=== PATIENT | male | born 1960 | race Hispanic/Latino ===

== ENCOUNTER 2016-10-22 08:43 | Day surgery (SDC) | payer OTHER ==
[2016-10-22 08:57] VITALS: O2SAT 98
--- NOTE | 2016-10-22 09:23 | RAD ---
HISTORY: +stress COMPARISON: Med are FINDINGS: LUNGS: The lungs are well inflated and clear. PLEURA: No significant pleural effusion identified, no pneumothorax apparent. CARDIOVASCULAR: There is borderline cardiomegaly. OSSEOUS STRUCTURES: No significant abnormalities. VISUALIZED UPPER ABDOMEN: Normal. OTHER FINDINGS: None. IMPRESSION: No active pulmonary disease.
[2016-10-22 09:41] LABS: ADD MANUAL DIFF? NO
[2016-10-22 09:44] LABS: BASO # 0.02 K/mm3 (0.0-2.0); BASO % 0.5 % (0.0-3.0); EOS # 0.1 (0.0-0.7); EOS % 1.2 % (1.5-5.0); GRAN # 2.97 (1.4-6.5); GRAN % 68.5 % (50.0-68.0); HEMATOCRIT 41.2 % (42.0-52.0); LYMPH # 0.9 (1.2-3.4); LYMPH % 21.7 % (22.0-35.0); MEAN CELL VOLUME 86.6 fL (80.0-105.0); MEAN CORPUSCULAR HEMOGLOBIN 29.8 pg (25.0-35.0); MEAN CORPUSCULAR HGB CONC 34.5 g/dl (31.0-37.0); MEAN PLATELET VOLUME 11.1 fl (7.0-11.0); MONO # 0.4 (0.1-0.6); MONO % 8.1 % (1.0-6.0); PLATELET COUNT 185 10^3/uL (120.0-450.0); RED CELL DISTRIBUTION WIDTH 13.3 % (11.5-14.5); WHITE BLOOD COUNT 4.3 10^3/ul (4.5-11.0)
--- NOTE | 2016-10-22 09:57 | ED PDOC ---
Arrival/HPI - General Chief Complaint: Medical Clearance Time Seen by Provider: 10/22/16 08:47 Historian: Patient - History of Present Illness Narrative History of Present Illness (Text): 10/22/16 09:13 A 56 year old male, whose past medical history includes hypercholesterolemia, diabetes, and sleep apnea, who is sent by Dr. Valle for an abnormal stress test. Patient reports for the past couple of week he has been experiencing mild intermittent chest discomfort associated with shortness of breath so he made an appointment to have a stress test this morning. While running on the treadmill Dr. Valle noticed some abnormalities so he sent him down for further evaluation. Currently the patient is asymptomatic and denies any chest pain, shortness of breath or any other complaints at this time. PMD: Dr. Giron Time/Duration: > week (2 weeks) Symptom Onset: Other Symptom Course: Intermittent Quality: Other Activities at Onset: Rest Context: Home Past Medical History - Provider Review Nursing Documentation Reviewed: Yes - Infectious Disease Hx of Infectious Diseases: None - Cardiac Hx Hypertension: Yes - Gastrointestinal Hx Gastrointestinal Disorders: No - Psychiatric Hx Substance Use: No - Anesthesia Hx Anesthesia: No Family/Social History - Physician Review Nursing Documentation Reviewed: Yes Family/Social History: Unknown Family HX Smoking Status: Unknown If Ever Smoked Hx Alcohol Use: No Hx Substance Use: No Allergies/Home Meds Allergies/Adverse Reactions: Allergies amoxicillin trihydrate [From Augmentin] Allergy (Verified 10/22/16 08:54) RASH Penicillins Allergy (Verified 10/22/16 08:54) RASH potassium clavulanate [From Augmentin] Allergy (Verified 10/22/16 08:54) RASH Home Medications: Home Meds Medication Instructions Recorded Confirmed Amlodipine Besylate/Benazepril 1 cap PO DAILY 10/22/16 10/22/16 [Amlodipine Besylate and Benazepril Hydrochlor] Fenofibrate [Fenoglide] 130 mg PO DAILY 10/22/16 10/22/16 Lansoprazole [Prevacid] 30 mg PO DAILY 10/22/16 10/22/16 Review of Systems - Physician Review All systems were reviewed & negative as marked: Yes - Review of Systems Constitutional: absent: Fevers Respiratory: SOB Cardiovascular: Chest Pain Physical Exam Vital Signs Reviewed: Yes Vital Signs Temp Pulse Resp BP Pulse Ox 10/22/16 08:56 97.8 F 73 16 145/87 98 Temperature: Afebrile Blood Pressure: Normal Pulse: Regular Respiratory Rate: Normal Appearance: Positive for: Well-Appearing, Non-Toxic, Comfortable Pain Distress: None Mental Status: Positive for: Alert and Oriented X 3 - Systems Exam Head: Present: Atraumatic, Normocephalic Pupils: Present: PERRL Extroacular Muscles: Present: EOMI Conjunctiva: Present: Normal Mouth: Present: Moist Mucous Membranes Neck: Present: Normal Range of Motion Respiratory/Chest: Present: Clear to Auscultation, Good Air Exchange. No: Respiratory Distress, Accessory Muscle Use Cardiovascular: Present: Regular Rate and Rhythm, Normal S1, S2. No: Murmurs Abdomen: Present: Normal Bowel Sounds. No: Tenderness, Distention, Peritoneal Signs Back: Present: Normal Inspection Upper Extremity: Present: Normal Inspection. No: Cyanosis, Edema Lower Extremity: Present: Normal Inspection. No: Edema Neurological: Present: GCS=15, CN II-XII Intact, Speech Normal Skin: Present: Warm, Dry, Normal Color. No: Rashes Psychiatric: Present: Alert, Oriented x 3, Normal Insight, Normal Concentration Medical Decision Making ED Course and Treatment: Case discussed with Dr. Valle prior to arrival of the patient. He states to give the patient Aspirin and Plavix. Dr. Valle says to admit the patient for same day surgery and that he will taking the patient up today for a cardiac catheterization. EKG: Ordered, reviewed, and independently interpreted the EKG. Rate : 69 BPM Rhythm : NSR Interpretation : Left ventricular hypertrophy, nonspecific conduction delay, no acute ischemia. I have discussed with the patient of Dr. Valle plan to admit patient to the hospital for cardiac catheterization today, who expresses understanding. Patient given the opportunity to ask question, all questions were answered and there is agreement with the plan to be admitted to the hospital. Patient went up for cardiac catheterization. Case discussed with Dr. Giron, who is aware and agrees with the plan to admit the patient under his services. 10/22/16 09:25 Chest X-ray: Creator : Belkis Conway MD FINDINGS: LUNGS: The lungs are well inflated and clear. PLEURA: No significant pleural effusion identified, no pneumothorax apparent. CARDIOVASCULAR: There is borderline cardiomegaly. OSSEOUS STRUCTURES: No significant abnormalities. VISUALIZED UPPER ABDOMEN: Normal. OTHER FINDINGS: None. IMPRESSION: No active pulmonary disease. - Lab Interpretations Lab Results: 10/22/16 09:33 10/22/16 09:33 Lab Results 10/22/16 09:33: WBC 4.3 L, RBC 4.76, Hgb 14.2, Hct 41.2 L, MCV 86.6, MCH 29.8, MCHC 34.5, RDW 13.3, Plt Count 185, MPV 11.1 H, Gran % 68.5 H, Lymph % (Auto) 21.7 L, [place] % (Auto) 8.1 H, Eos % (Auto) 1.2 L, Baso % (Auto) 0.5, Gran # 2.97 , Lymph # 0.9 L, [place] # 0.4, Eos # 0.1, Baso # 0.02, Sodium 141, Potassium 3.9, Chloride 103, Carbon Dioxide 26, Anion Gap 16, BUN 15, Creatinine 0.9, Est GFR ( Amer) > 60, Est GFR (Non-Af Amer) > 60, Random Glucose 109, Calcium 9.2 , Total Bilirubin 0.5, AST 46, ALT 71 H, Alkaline Phosphatase 69, Troponin I 0.03, Total Protein 7.0, Albumin 4.3, Globulin 2.7, Albumin/Globulin Ratio 1.6 I have reviewed the lab results: Yes - RAD Interpretation Radiology Orders: 10/22/16 09:02 CHEST PORTABLE [RAD] Stat - Medication Orders Current Medication Orders: Discontinued Medications Aspirin (Aspirin Chewable) 324 mg PO STAT STA Stop: 10/22/16 09:03 Last Admin: 10/22/16 09:23 Dose: 324 MG Bivalirudin (Angiomax) Confirm Administered Dose 250 mg IV .STK-MED ONE Stop: 10/22/16 10:17 Clopidogrel Bisulfate (Plavix) 600 mg PO STAT STA Stop: 10/22/16 09:03 Last Admin: 10/22/16 09:23 Dose: 600 MG Diphenhydramine HCl (Benadryl) Confirm Administered Dose 50 mg .ROUTE .STK-MED ONE Stop: 10/22/16 10:32 Fentanyl (Fentanyl) Confirm Administered Dose 100 mcg .ROUTE .STK-MED ONE Stop: 10/22/16 10:21 Hydrocortisone Sodium Succinate (Solu-Cortef) Confirm Administered Dose 100 mg .ROUTE .STK-MED ONE Stop: 10/22/16 10:32 Heparin Sodium (Porcine) (Heparin 1000 Units/500 Ml Ns) Confirm Administered Dose 1,500 mls @ ud IV .STK-MED ONE Stop: 10/22/16 10:18 Famotidine (Pepcid 20mg/50ml Premix) Confirm Administered Dose 50 mls @ ud IVPB .STK-MED ONE Stop: 10/22/16 10:32 Iodixanol (Visipaque 320 Mg/Ml 200 Ml) Confirm Administered Dose 200 ml IV .STK- MED ONE Stop: 10/22/16 10:18 Iohexol (Omnipaque 350mg/Ml 50 Ml) Confirm Administered Dose 50 ml .ROUTE .STK- MED ONE Stop: 10/22/16 10:18 Lidocaine HCl (Lidocaine 2% 20ml Vial) Confirm Administered Dose 20 ml .ROUTE .STK-MED ONE Stop: 10/22/16 10:17 Midazolam HCl (Versed Inj) Confirm Administered Dose 2 mg .ROUTE .STK-MED ONE Stop: 10/22/16 10:21 Midazolam HCl (Versed Inj) Confirm Administered Dose 2 mg .ROUTE .STK-MED ONE Stop: 10/22/16 10:51 - Scribe Statement The provider has reviewed the documentation as recorded by the Rios Holden Provider Scribe Attestation: All medical record entries made by the Rios were at my direction and personally dictated by me. I have reviewed the chart and agree that the record accurately reflects my personal performance of the history, physical exam, medical decision making, and the department course for this patient. I have also personally directed, reviewed, and agree with the discharge instructions and disposition. Disposition/Present on Arrival - Present on Arrival Any Indicators Present on Arrival: No History of DVT/PE: No History of Uncontrolled Diabetes: No Urinary Catheter: No History of Decub. Ulcer: No History Surgical Site Infection Following: None - Disposition Have Diagnosis and Disposition been Completed?: Yes Disposition Time: 09:15
[2016-10-22 10:01] LABS: ALB/GLOB RATIO 1.6 (1.1-1.8); ALKALINE PHOSPHATASE 69 U/L (38-133); ALT/SGPT 71 U/L (7-56); AST/SGOT 46 U/L (15-59); BILIRUBIN,TOTAL 0.5 mg/dL (0.2-1.3); BLOOD UREA NITROGEN 15 mg/dL (7-21); CALCIUM 9.2 mg/dL (8.4-10.5); CARBON DIOXIDE 26 mmol/L (21-33); CHLORIDE 103 mmol/L (95-110); GFR AFRICAN-AMERICAN > 60; GLUCOSE,RANDOM 109 mg/dL (70-110); POTASSIUM 3.9 mmol/L (3.6-5.0); SODIUM 141 mmol/L (132-148)
[2016-10-22 10:13] LABS: TROPONIN I 0.03 ng/mL
[2016-10-22] MEDS ORDERED: Lidocaine 2% Inj (20ml) ONE (10:16)
[2016-10-22] MEDS ORDERED: Iohexol 350mgl/ml 50 ML ONE (10:17)
[2016-10-22] MEDS ORDERED: Iodixanol 320 MG/ML 200 ML BOTTLE IV ONE (10:17)
[2016-10-22] MEDS ORDERED: Midazolam 2 MG/2 ML VIAL ONE (10:20)
[2016-10-22] MEDS ORDERED: Famotidine 20mg/50ml 50 ML IVPB ONE (10:31)
[2016-10-22] MEDS ORDERED: DiphenhydrAMINE 50 mg/ml Inj ONE (10:31)
[2016-10-22] MEDS: Midazolam 2 MG/2 ML VIAL ONE ×2 (10:52→10:54)
[2016-10-22 12:57] VITALS: TEMP 98
--- NOTE | 2016-10-22 12:58 | CARDCATH ---
PROCEDURE DATE: 10/22/2016 HISTORY OF PRESENT ILLNESS: The patient is a 56-year-old male who presented to the Emergency Room af ter developing frequent PVCs as well as dyspnea and angina during a stress test. The patient's risk factors include hypertension which is not well controlled, obesity, as well as a strong family histor y for coronary artery disease. 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 Because of this, we b rought him to the laborer cheesemaking to definitively rule out coronary artery disease. PROCEDURE: Left heart catheterization with coronary angiography and left ventriculogram and supra-ao rtic valvular injection. The right femoral artery was cannulated with a 6-Tamazight sheath. There were no complications. The findings on catheterization revealed a left ventricle that revealed low normal LV ejection fracti on. Estimated ejection fraction is approximately 50%. His coronary anatomy revealed a left main artery that was unremarkable. His LAD and diagonal vessels were free of significant disease. The circumflex artery and obtuse marginal branches were free of significant disease. The RCA was found to be a dominant vessel and was within normal limits. Supra-aortic valvular injection revealed no aortic insufficiency. The aorta was dilated from the aor tic root around to the arch and part of the ascending aorta. No dissection flap was noted. Angio-Seal was used to close the femoral artery site. The patient tolerated the procedure well. In summary, the procedure revealed: 1. Low normal left ventricular function with an ejection fraction of 50%. 2. Normal coronary arteries. 3. A dilated ascending and transverse aorta. Given these findings, the patient's treatment needs to be medical therapy. Weight loss would be nece ssary. A low-salt diet and a strict cardiac risk reduction program including aerobic exercise is nec essary. I have discussed this with the patient and family in detail. They understand. As an outpat ient, we will obtain a CT scan of the aorta to follow his dilated ascending aorta. Pj Valle MD cc: [id number] TT: 10/22/2016 12:58:30 en
--- NOTE | 2016-10-22 13:19 | HP ---
I saw the patient in the stress test with Dr. Valle, who requested him to get a catheterization today. Finally, he agreed to go for catheterization. He just got done with the catheterization. Just spo ke to Dr. Valle. After having abnormal stress test, he said the cath was not that bad. No stents. Marylou duffy needs to have his blood pressure better well managed, lower cholesterol and lose weight. So, he wi ll probably be sent to the floor for admission and then discharged later today at 6:00. He understan ds the situation. He is comfortable in bed, a little chest discomfort, but no chest pain or shortnes s of breath at this time. We are putting him in for hypertension, chest pain, high cholesterol, over weight, diabetes. PAST MEDICAL HISTORY: We know he has high cholesterol, diabetes, sleep apnea, hypertension. FAMILY HISTORY: There is hypertension and diabetes in the family. SOCIAL HISTORY: He does not smoke or drink or do drugs at this time. ALLERGIES: PENICILLIN. MEDICATIONS: He is on amlodipine, benazepril, fenofibrate, and Prevacid. REVIEW OF SYSTEMS: Occasional chest discomfort, some shortness of breath from time to time. No acut e vision changes or hearing changes. No sore throats. No palpitations. Occasional chest discomfort , not sure what it was. He has got shortness of breath from time to time. No coughing, mucus or con gestion. Abdomen has no pain. No nausea, vomiting, constipation, diarrhea. Extremity are okay. He is alert and oriented x 3. He understands what is going on. PHYSICAL EXAMINATION: VITAL SIGNS: He has a 97.8 temp, 73 pulse, 16 respiratory rate, 145/87 blood pressure, 98% O2 sat on room air. HEENT: His head is atraumatic, normocephalic. He is well appearing, nontoxic, alert and oriented x3 , comfortable. Pupils equal, reactive to light. Extraocular muscles are intact. Throat is moist, n o erythema. NECK: Supple, no JVD. HEART: Regular rate. LUNGS: Decreased breath sounds but clear to auscultation. ABDOMEN: He has no palpable masses. Positive bowel sounds, nontender. No guarding, no rebound, no CVA tenderness. EXTREMITIES: Have no edema. GCS is 15. NEUROLOGIC: Cranial nerves II-XII grossly intact. SKIN: Warm and dry. NEUROLOGIC: Alert and oriented x 3. So, he is here with a positive stress test, status post coronary catheterization. He will be watched over until 6:00 p.m. today and then will be able to be discharged. LABORATORY DATA: He had blood tests. He has a 141 sodium, potassium 3.9, BUN 15, creatinine 0.9, GF R is greater than 60, sugar is 109, calcium is 9.2, total bili is 0.5, AST is 46, ALT is 71, alk phos 69. Troponin I is 0.03. Total protein 7, albumin is 4.3. White count is 4.3, hemoglobin is 14.2, hematocrit 41.2, platelets of 185. Chest x-ray was clear. I know very well. He will come see me in the office this week. We will do paperwork for him in the office that he needs for work. Jayesh Giron DO cc: [id number] TT: 10/22/2016 13:19:13 sn
[2016-10-22 15:31] VITALS: RESP 18
[2016-10-22 15:32] VITALS: BP 140/70
--- NOTE | 2016-10-22 16:15 | DS ---
He had an abnormal stress test, then he had a catheterization with Dr. Valle, which he did fairly well with. No stents, so he will be able to be discharged today at 6:00 p.m. He will go on his regular medications that he takes at home. PHYSICAL EXAMINATION: VITAL SIGNS: 97.8 temp, 73 pulse, 145/87 blood pressure, 16 respiratory rate, 98% O2 sat on room air . HEENT: Head is atraumatic, normocephalic. HEART: Regular rate. LUNGS: Clear to auscultation. ABDOMEN: Soft. EXTREMITIES: No edema. I went over his blood tests already. He will be discharged 6:[address] Valle wants him to h ave a tighter control of his blood pressure. MEDICATIONS: He is currently on Prevacid, Tricor, amlodipine, benazepril. We will see if Dr. Valle changes that up. I will follow him in the outpatient. If we need to, we michael l increase his blood pressure medicines when I see him in the office this week. Will also give him a note for work. He will be discharged later today at 6:[address] Valle. He was here for coronary artery disease, positive stress test, hypertension and high triglycerides. Jayesh Giron DO cc: [id number] TT: 10/22/2016 16:14:48 an
[2016-10-22 18:40] VITALS: PULSE 84
--- NOTE | 2016-10-22 18:58 | CARD ---
APPROVED REPORT EKG Measurement Heart [id number] <Conclusion> Normal sinus rhythm Left ventricular hypertrophy with QRS widening Abnormal ECG
== END 2016-10-22 18:55 | disposition home or self-care (01) ==
LOC: ED 08:43 → CATH 10:02 → 2RSO 11:52 → CATH 18:55
PROVIDERS: ATTEND Family Medicine
DX: I25.10 Atherosclerotic heart disease of native coronary artery without angina pectoris (principal); I10 Essential (primary) hypertension; E78.00 Pure hypercholesterolemia, unspecified; E11.9 Type 2 diabetes mellitus without complications; G47.30 Sleep apnea, unspecified; Z82.49 Family history of ischemic heart disease and other diseases of the circulatory system; Z88.0 Allergy status to penicillin
CPT/HCPCS: 71010; 80053; 84484; 85025; 93005; 93458; 93567; 99152; 99281; C1760; C1769; C2629; J1200; J1644; J1720; J2250; J3010; J7040